=== PATIENT | female | born 2000 | race Two or more races ===

== ENCOUNTER 2024-02-05 22:36 | Emergency (ER) | payer OTHER ==
[~2024-02-05] VITALS: Ht 167.6 cm; Wt 59.1 kg
[2024-02-05 23:03] VITALS: BP 129/69; PULSE 84; RESP 18; TEMP 98
== END 2024-02-05 23:24 | disposition left against medical advice (07) ==
LOC: EMS 22:41 → EDBD 22:41 → EMS 23:24
DX: M79.644 Pain in right finger(s) (principal); Z53.21 Procedure and treatment not carried out due to patient leaving prior to being seen by health care provider